=== PATIENT | male | born 1955 | race Hispanic/Latino ===

== ENCOUNTER 2018-03-27 09:21 | Day surgery (SDC) | payer MEDICARE, OTHER ==
[2018-03-27] MEDS ORDERED: Lactated Ringer's 500 ML IV ONE (09:39)
[2018-03-27] MEDS ORDERED: Albuterol HFA 90 mcg/actuation (8 g) ONE (10:20)
[2018-03-27] MEDS ORDERED: Propofol 10 mg/ml Inj (20 ML) ONE (11:39)
[2018-03-27] MEDS ORDERED: Midazolam 2 MG/2 ML VIAL ONE (11:39)
[2018-03-27 12:09] VITALS: RESP 16; TEMP 97
[2018-03-27 12:21] VITALS: BP 107/77; PULSE 76; O2SAT 99
== END 2018-03-27 12:40 | disposition home or self-care (01) ==
LOC: H.ENDO 09:21
PROVIDERS: ATTEND Internal Medicine Gastroenterology
DX: Z12.11 Encounter for screening for malignant neoplasm of colon (principal); A63.0 Anogenital (venereal) warts; K92.1 Melena; K64.8 Other hemorrhoids
CPT/HCPCS: 45380; 88305; J2001; J2250; J2704; J7120